=== PATIENT | female | born 1955 | race Caucasian/White ===

== ENCOUNTER 2016-10-23 15:39 | Emergency (ER) | payer OTHER, MEDICARE ==
[~2016-10-23] VITALS: Ht 170.2 cm; Wt 90.7 kg
[~2016-10-23 15:39] MED LIST: AMITRIPTYLINE100 MG PO; AMITRIPTYLINE50 MG PO; AMOXIL500 MG PO; CEPHALEXIN500 M1 PO; COLACE100 MG PO; CORTEF10 MG PO; CYMBALTA60 MG PO; ELAVIL25 MG PO; GABITRIL2 MG PO; HYDROCORTISONE10 MG PO; KADIAN80 MG PO; KEFLEX500 MG PO; LEVOTHYROXIN0.125 MG PO; MIRALAX17 GM PO; MORPHINE SULFAT30 M5 PO; MOXIFLOXACIN H400 M1 PO; MULTI VITAMINS1 TAB PO; NYSTATIN100000 U/2 TOP; PROTONIX 40MG T40 MG PO; PROTONIX40 M1 PO; SENNA-LAX8.6 MG PO; SIMVASTATIN20 MG PO; SYNTHROID0.025 MG PO; SYNTHROID0.137 MG PO; VALIUM5 M1 PO; ZYBAN150 MG PO
[2016-10-23] MEDS ORDERED: AMITRIPTYLINE100 M2 PO (16:00)
[2016-10-23] MEDS ORDERED: SIMVASTATIN20 M2 PO (16:00)
[2016-10-23] MEDS ORDERED: DULOXETINE HCL60 MG PO (16:00)
[2016-10-23] MEDS ORDERED: LEVOTHYROXINE137 MCG PO (16:00)
[2016-10-23] MEDS ORDERED: MORPHINE SULFAT60 M4 PO (16:01)
[2016-10-23] MEDS ORDERED: PANTOPRAZOLE SO40 M1 PO (16:01)
[2016-10-23] MEDS ORDERED: MORPHINE SULFAT30 M7 PO (16:01)
[2016-10-23] MEDS ORDERED: GEMFIBROZIL600 M1 PO (16:02)
[2016-10-23] MEDS ORDERED: HYDROCORTISONE10 M2 PO ×2 (16:02)
[2016-10-23] MEDS ORDERED: DAILY VALUE1 EACH PO (16:04)
[2016-10-23] MEDS ORDERED: DIAZEPAM5 M1 PO (16:04)
[2016-10-23] MEDS ORDERED: NYSTOP60 GM TOP (16:05)
[2016-10-23] MEDS ORDERED: POLYETHYLENE G255 GM PO (16:05)
--- NOTE | 2016-10-23 16:33 | ED THROAT/DENTAL COMPLAINT ---
History of Present Illness General Chief Complaint: General Adult Stated Complaint: BIBA WITH PT THINKS SOMETHING IS IN HER THROAT Source: patient, old records Exam Limitations: no limitations Vital Signs & Intake/Output Vital Signs & Intake/Output Vital Signs Date Time Temp Pulse Resp B/P Pulse O2 O2 Flow FiO2 Ox Delivery Rate 10/23 1738 82 147/81 10/23 1715 84 18 144/82 96 Room Air 10/23 1549 97.3 102 18 141/70 96 Room Air Allergies Coded Allergies: NSAIDS (Non-Steroidal Anti-Inflamma (GI BLEEDING 10/23/16) aspirin (VOMITING 10/23/16) oxycodone (VOMITING 10/23/16) sertraline (From [facility]) (+ SI 10/23/16) Reconcile Medications Amitriptyline HCl 100 MG TABLET 1 TAB PO QPM PAIN (Reported) Diazepam 5 MG TABLET 1 TAB PO TID PRN MUSCLE SPASMS (Reported) Duloxetine HCl 60 MG CAPSULE.DR 1 CAP PO DAILY UNKNOWN (Reported) Gemfibrozil 600 MG TABLET 1 TAB PO DAILY CHOLESTEROL (Reported) Hydrocortisone 10 MG TABLET 2 TAB PO QAM ADDISONS (Reported) Hydrocortisone 10 MG TABLET 1 TAB PO QPM ADDISONS (Reported) Hyoscyamine (Levsin) 0.125 MG TABLET 1-2 TAB PO Q6P PRN ESOPHAGEAL SPASMS Levothyroxine Sodium 137 MCG TABLET 1 TAB PO DAILY THYROID (Reported) Morphine Sulfate (Morphine Sulfate ER) 60 MG TABLET.ER 1 TAB PO BID PAIN ( Reported) Morphine Sulfate 30 MG TABLET 1 TAB PO BID PAIN (Reported) Multivitamin (Daily Value) 1 EACH TABLET 1 TAB PO DAILY SUPPLEMENT (Reported) Nystatin (Nystop) 100,000 UNIT/GRAM POWDER 1 YUMIKO TOP DAILY BREASTS/GROIN ( Reported) Pantoprazole Sodium 40 MG TABLET.DR 1 TAB PO DAILY GI (Reported) Polyethylene Glycol 3350 17 GRAM/DOSE POWDER 17 GM PO PRN GI (Reported) Simvastatin (Simvastatin*) 20 MG TABLET 1 TAB PO QPM CHOLESTEROL (Reported) Triage Note: PT TO ROOM7 BIBA FROM HOME WITH C/O SOMTHING STUCK IN HER THROAT AND NOW IT MOVED DOWN INTO ESOPHAGUS. PT DENIES DIFFICULTY BREATHING OR SWALLOWING. PT ATE YOGURT AND CRANBERRIES PRIOR TO SIMPTOMS. HX OF CHIARI MALFORMATION, ADDISONS, THROAT SPASMS xYEAR, HTN,HIGH CHOL. Triage Nurses Notes Reviewed? yes HPI: Patient presents for evaluation of severe intermittent esophageal spasms. Patient has a history of esophageal spasms and takes diazepam and other medications for this. This particular episode began about 3 hours ago while resting. The spasms seemed to be independent of PO intake. Patient also has a history of prior adenomas of the esophagus years ago. Nothing seems to make her feel better. Past History Travel History Traveled to [place] past 21 day No Medical History Any Pertinent Medical History? 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: HYSTERECTOMY Other Medical Hx: Hypothyroidism EMPTY SELLA SYNDROME History of MRSA: No History of VRE: No History of CDIFF: No Pneumonia Vaccine: 07/30/09 Influenza Vaccine: 05/12/15 Tetanus Vaccine: 03/15/15 Surgical History Surgical History: appendectomy, cholecystectomy, colon resection, hysterectomy, tonsilectomy multple foot procedures Psychosocial History Who do you live with Patient/Self Services at Home None What is your primary language Urdu Tobacco Use: Current Daily Use Daily Tobacco Use Amount/Type: => 5 Cigarettes daily Family History Family History, If Any: MOTHER Relation not specified for: Adrenal insufficiency Hx Contributory? No Review of Systems Review of Systems Constitutional: Reports: no symptoms. EENTM: Reports: see HPI. Respiratory: Reports: no symptoms. Cardiovascular: Reports: no symptoms. GI: Reports: no symptoms. Genitourinary: Reports: no symptoms. Musculoskeletal: Reports: no symptoms. Skin: Reports: no symptoms. Neurological/Psychological: Reports: no symptoms. Hematologic/Endocrine: Reports: no symptoms. Immunologic/Allergic: Reports: no symptoms. All Other Systems: Reviewed and Negative Physical Exam Physical Exam Mouth/Throat: SEE BELOW Comments: Gen.: Well-nourished, well-developed, no acute respiratory distress. Overweight. Head: Normocephalic, atraumatic. Eyes: Normal inspection bilaterally Ears: Normal inspection bilaterally Nose: Normal inspection Throat/mouth : Moist mucosa Neck: Supple, full range of motion, no goiter Heart: Regular rate and rhythm, no murmurs rubs or gallops Lungs: Clear to auscultation bilaterally with normal air entry Chest: Nontender Back: Normal range of motion Abdomen: Soft, nontender, nondistended, normal bowel sounds Extremities: Normal range of motion grossly, equal radial pulses, no cyanosis clubbing or edema Neurologic: Cranial nerves grossly intact, speech is clear Skin: warm and dry Psychiatric: Calm, cooperative, no apparent delusions or hallucinations Core Measures ACS in differential dx? No Severe Sepsis Present: No Septic Shock Present: No Progress Differential Diagnosis: ESOPHAGEAL SPASMS OR OTHER PATHOLOGY, GASTROPARESIS Plan of Care: Orders Procedure Date/time Status Regular Diet 10/24 B Active Comments: 10/23/2016 6:40:56 PM patient states she had one relatively mild esophageal spasm during her emergency department stay, after medications. Overall she is feeling better, comfortable enough to return home and follow up with her GI specialist. Departure Departure Disposition: HOME OR SELF CARE Condition: Stable Clinical Impression Primary Impression: Esophageal spasm Referrals: JAYANT MCLEAN,THOR (PCP/Family) Additional Instructions: Continue your current medications. Follow-up with your GI specialist as soon as possible. Levsin as as prescribed as needed for esophageal spasms. Return if any concerns or sudden worsening. Departure Forms: Customer Survey General Discharge Information Prescriptions: Current Visit Scripts Hyoscyamine (Levsin) 1-2 TAB PO Q6P PRN ESOPHAGEAL SPASMS #20 TAB
[2016-10-23] MEDS ORDERED: LEVSIN0.125 M1 PO (18:43)
[2016-10-23 18:56] VITALS: BP 138/75
== END 2016-10-23 18:58 ==
LOC: ERH 15:39
DX: K22.4 Dyskinesia of esophagus (principal); Z72.0 Tobacco use